=== PATIENT | male | born 1960 | race Hispanic/Latino ===

== ENCOUNTER 2019-04-22 08:23 | Day surgery (SDC) | payer OTHER ==
[2019-04-20 17:34] VITALS: BP 147/82
[2019-04-20 17:40] LABS: BASOPHILS % (AUTO) 1.2 % (0.0-5.0); EOSINOPHILS % (AUTO) 8.4 % (0.0-8.0); HEMATOCRIT 36.5 % (42-54); LYMPHOCYTES % (AUTO) 24.7 % (21.0-51.0); MEAN CORPUSCULAR HEMOGLOBIN 32.7 pg (27.0-33.0); MEAN CORPUSCULAR HGB CONC 34.1 g/dL (32.0-36.0); MEAN CORPUSCULAR VOLUME 95.9 fL (79-99); MONOCYTES % (AUTO) 6.8 % (3.0-13.0); NEUTROPHILS % (AUTO) 58.9 % (40.0-77.0); PLATELET COUNT (AUTO) 235 K/uL (130-400); RED BLOOD CELL COUNT(AUTO) 3.81 MIL/uL (4.50-6.20); WHITE BLOOD COUNT (AUTO) 9.6 K/uL (4.8-10.8)
[2019-04-20 17:51] LABS: CREATININE 4.3 mg/dL (0.5-1.5)
--- NOTE | 2019-04-21 13:24 | NUR ---
ABNORMAL LABS BUN 52, CREAT 4.[address] HERNANDEZ. PT HAS HX OF CRI, HAS CARDIAC CLEARANCE. NO FURTHER ORDERS GIVEN.
[~2019-04-22] VITALS: Ht 167.6 cm; Wt 92.3 kg
[2019-04-22] VITALS (10 sets, daily range): BP systolic 113–153; BP diastolic 73–93
[~2019-04-22 08:23] MED LIST: ALLO100T PO; AMLO5TAB9 PO; ATOR20TA65 PO; CALC667T6 PO; CEFTRIAXONE SODIUM 1 GM IVP SCH; DOCU-116 PO; FERR325T22 PO; FOLI1TAB85 PO; ISOS30TA6 PO; TAMS-1 PO; TORS20TA4 PO
--- NOTE | 2019-04-22 09:00 | NUR ---
FLEET ENEMA ADMINISTERED AT THIS TIME, PT LYING ON LEFT SIDE.
--- NOTE | 2019-04-22 09:05 | NUR ---
PT BOWEL MOVEMENT SUCCESSFUL.
[2019-04-22] MEDS ORDERED: LACTATED RINGERS 1000ML 1,000 ML IV ONE (09:59)
[2019-04-22] MEDS ORDERED: CEFTRIAXONE SODIUM 1 GM ONE (13:02)
[2019-04-22] MEDS ORDERED: PROPOFOL 10 MG/ML 20ML VIAL IV ONE (13:16)
[2019-04-22] MEDS ORDERED: LIDOCAINE PF 2% 5ML ABBOJECT ONE (13:16)
[2019-04-22] MEDS ORDERED: MIDAZOLAM HCL 1 MG/ML 2ML VIAL ONE (13:16)
[2019-04-22] MEDS ORDERED: LIDOCAINE HCL 2% PF 20 ML JEL DISP.SYRIN MM ONE (13:25)
== END 2019-04-22 15:15 | disposition home or self-care (01) ==
LOC: DAH 08:23
PROVIDERS: ATTEND Urology
DX: R97.20 Elevated prostate specific antigen [PSA] (principal); I12.9 Hypertensive chronic kidney disease with stage 1 through stage 4 chronic kidney disease, or unspecified chronic kidney disease; N18.4 Chronic kidney disease, stage 4 (severe); E78.5 Hyperlipidemia, unspecified; I25.10 Atherosclerotic heart disease of native coronary artery without angina pectoris; I48.0 Paroxysmal atrial fibrillation; R35.1 Nocturia; Z80.42 Family history of malignant neoplasm of prostate; Z79.899 Other long term (current) drug therapy
CPT/HCPCS: 36415; 55700; 76942; 80048; 85025; 88305; A4213; A4215 ×2; A4221; A4222; A4223; A4335; A4358; A4606; A4663; A6260; J0696; J2001; J2250; J2704; J7120 ×2

== ENCOUNTER 2020-12-28 09:16 | Day surgery (SDC) | payer OTHER ==
[2020-12-26 09:53] LABS: EOSINOPHILS % (AUTO) 5.4 % (0.0-8.0); HEMATOCRIT 32.1 % (42-54); LYMPHOCYTES % (AUTO) 15.7 % (21.0-51.0); MEAN CORPUSCULAR HEMOGLOBIN 33.4 pg (27.0-33.0); MEAN CORPUSCULAR VOLUME 101.3 fL (79-99); MONOCYTES % (AUTO) 10.2 % (3.0-13.0); NEUTROPHILS % (AUTO) 66.4 % (40.0-77.0); PLATELET COUNT (AUTO) 189 K/uL (130-400); RED BLOOD CELL COUNT(AUTO) 3.17 MIL/uL (4.50-6.20); RED CELL DISTRIBUTION WIDTH 12.5 % (11.0-15.5)
[2020-12-26 10:00] LABS: INR 0.98 (0.85-1.15); PROTHROMBIN TIME 10.7 SEC (9.6-11.6)
[2020-12-26 10:01] LABS: PARTIAL THROMBOPLASTIN TIME 26.4 SEC (26.3-35.5); POTASSIUM 4.7 mmol/L (3.5-5.1)
[2020-12-26 10:04] LABS: CREATININE 8.4 mg/dL (0.5-1.5)
[2020-12-27 15:18] VITALS: BP 118/63
[~2020-12-28] VITALS: Ht 165.1 cm; Wt 95.6 kg
[~2020-12-28 09:16] MED LIST changes: +0.9% NACL 500ML IV.SOLN 500 ML IV SCH; -ALLO100T PO; -AMLO5TAB9 PO; -CEFTRIAXONE SODIUM 1 GM IVP SCH; +CHOL100040 PO; -DOCU-116 PO; -FERR325T22 PO; -ISOS30TA6 PO; +MIDO10TA PO; -TAMS-1 PO; -TORS20TA4 PO
[2020-12-28 10:13] VITALS: BP 107/59
[2020-12-28] MEDS ORDERED: IOHEXOL 350 MG/ML 100ML INFUS..BTL IV ONE (15:14)
[2020-12-28] MEDS ORDERED: IOHEXOL-350 50ML VIAL IV ONE (15:14)
[2020-12-28] MEDS ORDERED: MIDAZOLAM HCL 1 MG/ML 2ML VIAL ONE (15:14)
[2020-12-28] MEDS ORDERED: SODIUM BICARB 50MEQ 50ML VIAL 0 ML ONE (15:14)
[2020-12-28] MEDS ORDERED: LIDOCAINE HCL 400MG/20ML VIAL ONE (15:14)
[2020-12-28] MEDS ORDERED: BIVALIRUDIN 250 MG/VIAL IV ONE (15:14)
[2020-12-28] MEDS ORDERED: HEPARIN 10,000 UNIT/10ML (1,000 UNIT/ML) VIAL ONE (15:14)
[2020-12-28] MEDS ORDERED: FENTANYL CITRATE PF 50 MCG/1 ML 2ML VIAL ONE (15:14)
[2020-12-28] MEDS ORDERED: IOHEXOL-350 75 ML VIAL IV ONE (15:14)
[2020-12-28] MEDS ORDERED: NITROGLYCERIN 2 MG VIAL IV ONE (16:00)
[2020-12-28 16:40] VITALS: BP 134/64
[2020-12-28 16:55] VITALS: BP 126/54
[2020-12-28 17:10] VITALS: BP 128/73
[2020-12-28 17:40] VITALS: BP 118/70
[2020-12-28 18:00] VITALS: BP 127/69
== END 2020-12-28 18:15 | disposition home or self-care (01) ==
LOC: DAH 09:16
PROVIDERS: ATTEND Internal Medicine Cardiovascular Disease
DX: R06.09 Other forms of dyspnea (principal); I20.9 Angina pectoris, unspecified; I48.0 Paroxysmal atrial fibrillation; I12.9 Hypertensive chronic kidney disease with stage 1 through stage 4 chronic kidney disease, or unspecified chronic kidney disease; N18.4 Chronic kidney disease, stage 4 (severe); E78.5 Hyperlipidemia, unspecified; Z99.2 Dependence on renal dialysis; Z83.3 Family history of diabetes mellitus; Z82.49 Family history of ischemic heart disease and other diseases of the circulatory system; Z79.82 Long term (current) use of aspirin; Z79.01 Long term (current) use of anticoagulants; Z79.899 Other long term (current) drug therapy; Z98.890 Other specified postprocedural states
CPT/HCPCS: 36415; 71045; 80048; 85025; 85610; 85730; 93005; 93458; C1760; C1894 ×2; J1644; J2250; J3010; J3490 ×2; Q9965; Q9967 ×2; 99156; 99157; J0583

== ENCOUNTER → 2024-11-24 | Outpatient (CLI) | payer OTHER ==
[~2024-11-24] MED LIST changes: -0.9% NACL 500ML IV.SOLN 500 ML IV SCH; -MIDO10TA PO; +MIDO10TA3 PO
== END | disposition home or self-care (01) ==
LOC: RAH 14:09
PROVIDERS: ATTEND Internal Medicine
DX: I08.1 Rheumatic disorders of both mitral and tricuspid valves (principal); R60.0 Localized edema
CPT/HCPCS: 93306